=== PATIENT | female | born 1970 | race Caucasian/White ===

== ENCOUNTER 2019-01-15 15:21 | Inpatient (IN) | payer OTHER ==
[~2019-01-15] VITALS: Ht 154.9 cm; Wt 53.5 kg
[2019-01-15 15:32] VITALS: BP 154/83
[2019-01-15] MEDS ORDERED: MAGBID ER84 MG PO (15:35)
[2019-01-15] MEDS ORDERED: RIBOFLAVIN50 MG PO (15:36)
[2019-01-15] MEDS ORDERED: LINZESS145 MCG PO (15:36)
[2019-01-15] MEDS ORDERED: IMITREX100 MG PO (15:37)
[2019-01-15 15:52] LABS: ABSOLUTE BASOPHILS 0.1 thou/uL (0.0-0.2); ABSOLUTE LYMPHOCYTES 1.1 thou/uL (0.8-5.3); ABSOLUTE MONOCYTES 0.9 thou/uL (0.0-1.2); ABSOLUTE NEUTROPHILS 9.2 thou/uL (1.6-8.1); BASOPHILS 0.5 %; EOSINOPHILS 0.4 %; HEMATOCRIT 41.9 % (37.0-47.0); HEMOGLOBIN 14.2 gm/dL (12.0-15.0); LYMPHOCYTES 9.7 %; MCH 29.9 pg (26.0-34.0); MCHC 33.8 g/dL (28.0-37.0); MCV 88.6 fL (80.0-100.0); MONOCYTES 8.1 %; MPV 8.6 fl. (7.2-11.1); NUCLEATED RBCS 0 /100WBC; PLATELET COUNT* 298 thou/uL (150-400); POLYS 81.3 %; RBC 4.73 mil/uL (4.20-5.00); WBC 11.3 thou/uL (4.0-11.0)
[2019-01-15 15:55] LABS: URINE BILIRUBIN NEGATIVE (Negative); URINE BLOOD TRACE (Negative); URINE CLARITY CLEAR; URINE COLOR YELLOW; URINE GLUCOSE-RANDOM NEGATIVE (Negative); URINE KETONES NEGATIVE (Negative); URINE LEUKOCYTES-REFLEX NEGATIVE (Negative); URINE NITRITE-REFLEX NEGATIVE (Negative); URINE PROTEIN NEGATIVE (Negative); URINE SPECIFIC GRAVITY <= 1.005 (1.005-1.030); URINE UROBILINOGEN 0.2 E.U./dl (0.2-1.0)
[2019-01-15 15:58] LABS: CALCIUM 9.8 mg/dL (8.5-10.1); POTASSIUM 3.6 mmol/L (3.5-5.1)
[2019-01-15 16:02] LABS: ALBUMIN 3.7 g/dL (3.4-5.0); TOTAL BILIRUBIN 0.6 mg/dL (<0.1-1.0)
[2019-01-15 18:49] VITALS: BP 138/92
[2019-01-15 21:30] VITALS: BP 116/73
[2019-01-16] VITALS (7 sets, daily range): BP systolic 108–133; BP diastolic 66–72
--- NOTE | 2019-01-16 06:37 | OP ---
[address] [address] OPERATIVE REPORT Name: TRINH BRAVO Room: [address] Femi#: [id number] Admission: 01/15/19 Attend Phys: Armando Castaneda Discharge: Date of : 68 Report #: [id number] THIS REPORT FOR: //name// CC: [facility] physician/PCP Carlton Meeks DATE OF SERVICE: 01/15/2019 PREOPERATIVE DIAGNOSIS: Acute appendicitis. POSTOPERATIVE DIAGNOSIS: Acute appendicitis. OPERATIVE PROCEDURE: Laparoscopic appendectomy. ANESTHESIA: General endotracheal with 0.5% Marcaine infiltrated into the wound sites. OPERATIVE FINDINGS: Inflamed appendix without perforation. OPERATIVE PROCEDURE: The patient was placed under general endotracheal anesthesia. Lees catheter inserted and the abdomen was shaved, prepped and draped in a sterile fashion. IV antibiotic was administered. A timeout was taken. I began by infiltrating the infraumbilical crease with 0.5% Marcaine. Using a #15 scalpel blade, a transverse incision was placed. It was lifted up with 2 Adson and cautery dissection down to the anterior abdominal wall with the aid of an S-retractor. The abdominal wall was grasped with 2 Kochers and cleared with cautery and transected transversely with a #15 scalpel blade. Blunt dissection with a mosquito into the peritoneal cavity was accomplished without injury to underlying abdominal viscera. A 0 PDS was looped through this incision site. A size 12 applied medical Domonique trocar, was placed into the peritoneal cavity and secured at the skin. Insufflation with carbon dioxide to 5 liters was completed and a 5 mm 30-degree scope was inserted. Under direct visualization, the suprapubic area was palpated, infiltrated with Marcaine and a small stab incision was placed there and a 5 mm trocar was placed at that location and then the right mid abdomen was palpated infiltrated with 0.5% Marcaine, made a stab incision there and a bladeless 5 mm trocar placed at . The patient then was placed in Trendelenburg and left lateral decubitus position. Using an Endo [place] and a [place], the appendix was identified, lifted up and cleared of its fat with the use of a ligature dissector to dissect around the periappendiceal fat. Once the appendiceal cecal junction was identified, Endo-IVETH 45 was brought into the field, placed across the base of the appendiceal cecal junction and fired amputating the appendix. I then removed the stapler and replaced it with an Endopouch, which was opened. The appendix was placed in a pouch. The pouch was closed and then retrieving the appendix in the pouch. I removed the Domonique trocar and the appendix was delivered. The Domonique was replaced and [place] [address] OPERATIVE REPORT Name: TRINH BRAVO Room: [address] Rex Kahn#: [id number] Admission: 01/15/19 Attend Phys: Armando Castaneda Discharge: Date of : 68 Report #: [id number] The right lower quadrant was irrigated and aspirated and the field was dry, no active bleeding or fluid seen. Pneumoperitoneum was released. Laparoscopic instruments and trocars were removed and the patient was placed back in neutral position. The 0 PDS was tied at the umbilical stalk and injected with 0.5% Marcaine and then all three incisions were closed with buried 4-0 PDS sutures and sealed with Dermabond. Estimated blood loss 2 mL. Sponge and instrument counts correct. Specimen to pathology. The patient was extubated in stable condition. <ELECTRONICALLY SIGNED> By: Nancy Bernabe MD 01/16/19 0637 [id number] Bernabe MD /nt
[2019-01-16] MEDS ORDERED: HYDROCODON-ACE1 EAC7 PO (06:48)
--- NOTE | 2019-01-18 13:07 | PATH ---
[address] [address] PATHOLOGY RPT PROCEDURE Name: TRINH SERRANO Room: [address] Femi#: [id number] Admission: 01/15/19 Date of : 68 Discharge: 01/16/19 Report #: [id number] Path Case #: [id number] [facility] Accession Number: [id number] . 01 Material submitted: . appendix - APPENDIX . 01 Clinical history: . Acute appendicitis . 02 Diagnosis: Appendix: - Acute appendicitis, periappendicitis and serositis. (KI:gregoria; 01/18/2019) MBR/01/18/2019 . 02 Electronically signed: . Luis Enrique Cooper MD, Pathologist NPI- [id number] . 01 Gross description: . The specimen is received in formalin, labeled "Trinh Serrano, appendix" and consists of an appendix measuring 4.7 cm in length and ranging from 0.3 cm to 1.1 cm in diameter with mesoappendix measuring up to 2.2 cm thick. The margin is closed with a line of mario and inked black. The serosa is martinez-brown with thick adhesions/exudate. The lumen varies from pinpoint to markedly dilated (up to 0.8 cm) and contains soft martinez-brown material and no gross mucosal lesions. [employer] sections are submitted in A1. (SDY; 01/17/2019) SYU/SYU . 02 Pathologist provided ICD-10: K35.80, K65.8 . 02 CPT . 486161 Specimen Comment: A courtesy copy of this report has been sent to Specimen Comment: [phone], . Specimen Comment: Report sent to / DR PERLA Performed at: [address], [place], [place] [id number] MD Shiva Mckee MD Phone: [phone] Performed at: [address] [facility] [address] [place], [place] [id number] MD Luis Enrique Cooper MD Phone: [phone]
== END 2019-01-16 11:15 | disposition home or self-care (01) | DRG 343 ==
LOC: M.ERS 15:21 → M.TBA-ER 18:10 → M.ORTHSURG 18:10
PROVIDERS: Nurse Practitioner Family; ADMIT Internal Medicine
PROC: 0DTJ4ZZ Resection of Appendix, Percutaneous Endoscopic Approach (ICD-10-PCS; principal; 2019-01-15)
DX: K35.80 Unspecified acute appendicitis (principal); Z79.899 Other long term (current) drug therapy; Z98.891 History of uterine scar from previous surgery